=== PATIENT | male | born 1985 | race Hispanic/Latino ===

== ENCOUNTER 2017-09-04 15:16 | Emergency (ER) | payer BC ==
[2017-09-04 15:43] VITALS: BP 152/71; PULSE 68; RESP 18; TEMP 98.2; O2SAT 100
--- NOTE | 2017-09-04 15:51 | ED PDOC ---
HPI: General Adult Time Seen by Provider: 09/04/17 15:44 Chief Complaint (Nursing): Lower Extremity Problem/Injury Chief Complaint (Provider): knee pain History Per: Patient History/Exam Limitations: no limitations Onset/Duration Of Symptoms: Mins Current Symptoms Are (Timing): Still Present Additional Complaint(s): 31 y/o male presents to the emergency department with left knee pain, swelling , and bruising after he slipped and fell while dancing yesterday. He did not sustain any head injury or LOC. He reports he took Ibuprofen around 11am this morning which helped only minimally with pain. He denies any numbness or tingling to affected area. Past Medical History Reviewed: Historical Data, Nursing Documentation, Vital Signs Vital Signs: Last Vital Signs Temp 98.2 F 09/04/17 15:39 Pulse 68 09/04/17 15:39 Resp 18 09/04/17 15:39 BP 152/71 H 09/04/17 15:39 Pulse Ox 100 09/04/17 15:59 - Medical History PMH: No Chronic Diseases - Surgical History Surgical History: Appendectomy Other surgeries: Septoplasty - Family History Family History: States: No Known Family Hx - Living Arrangements Living Arrangements: With Family - Social History Current smoker - smoking cessation education provided: No Alcohol: Social Drugs: Denies - Allergies Allergies/Adverse Reactions: Allergies Allergy/AdvReac Type Severity Reaction Status Date / Time No Known Allergies Allergy Verified 09/04/17 15:47 Review of Systems ROS Statement: Except As Marked, All Systems Reviewed And Found Negative Musculoskeletal: Positive for: Other (Left knee pain, swelling, and bruising) Physical Exam - Reviewed Nursing Documentation Reviewed: Yes Vital Signs Reviewed: Yes - Physical Exam Appears: Positive for: Well, Non-toxic, No Acute Distress Head Exam: Positive for: ATRAUMATIC, NORMAL INSPECTION, NORMOCEPHALIC Skin: Positive for: Normal Color. Negative for: Rash Extremity: Positive for: Swelling (Ecchymosis and swelling to left patellar region with full range of motion. ), Other (Normal distal sensation of left lower extremity) Neurologic/Psych: Positive for: Alert, Oriented (x3) - ECG O2 Sat by Pulse Oximetry: 100 (RA) Pulse Ox Interpretation: Normal - Other Rad Left knee x-ray X-Ray: Interpreted by Me, Viewed By Me X-Ray Interpretation: no fx, no dis Medical Decision Making Medical Decision Making: Time: 15:48 Initial Impression: Left knee injury s/p fall Initial Plan: --Left knee x-ray --Tylenol 650 mg PO Patient aware of x-ray results. All questions answered. Crutches given. Knee immobilizer applied. Advised NSAID for pain, patient was referred to orthopedist on-call and advised to follow up for any persistent symptoms. Scribe Attestation: Documented by Sheba Conteh, acting as a scribe for Jodi Bermudez PA-C. Provider Scribe Attestation: All medical record entries made by the Scribe were at my direction and personally dictated by me. I have reviewed the chart and agree that the record accurately reflects my personal performance of the history, physical exam, medical decision making, and the department course for this patient. I have also personally directed, reviewed, and agree with the discharge instructions and disposition. Procedures - Splinting Location: left knee Pre-Made Type: knee immobilizer Pre-Proc Neuro Vasc Exam: normal Post-Proc Neuro Vasc Exam: normal Disposition - Clinical Impression Clinical Impression: Knee contusion - Patient ED Disposition Is Patient to be Admitted: No Counseled Patient/Family Regarding: Studies Performed, Diagnosis, Need For Followup - Disposition Referrals: Selwyn Monae III, MD [Staff Provider] - Disposition: Routine/Home Disposition Time: 16:11 Condition: STABLE Additional Instructions: Ice and elevate affected area. Take [id number] Advil for pain as needed. Follow-up with orthopedist for any persistent symptoms. Instructions: Knee Sprain (ED), Contusion in Adults (ED), Crutch Instructions ( ED), Knee Immobilizer (ED) Forms: [email or web address] ([place])
--- NOTE | 2017-09-04 16:19 | RAD ---
PROCEDURE: Left Knee Radiographs. HISTORY: COMPARISON: None available. FINDINGS: BONES: No acute displaced fracture. JOINTS: No dislocation. JOINT EFFUSION: No significant joint effusion. OTHER FINDINGS: Soft tissue swelling. IMPRESSION: Soft tissue swelling. No acute displaced fracture, dislocation, or significant joint effusion identified. If symptoms persist, or if there is continued clinical concern, x-ray follow-up in 7-10 days should be considered.
== END 2017-09-04 16:22 | disposition home or self-care (01) ==
LOC: H.ER 15:16
DX: S83.92XA Sprain of unspecified site of left knee, initial encounter (principal); W19.XXXA Unspecified fall, initial encounter; Y92.89 Other specified places as the place of occurrence of the external cause
CPT/HCPCS: 29530; 73562; 99284; L1830